=== PATIENT | female | born 1950 | race Hispanic/Latino ===

== ENCOUNTER 2017-07-02 14:32 | Outpatient (CLI) | payer MEDICARE, OTHER ==
--- NOTE | 2017-07-02 16:10 | MRI ---
MRI CERVICAL SPINE: 07/02/17 Multiplanar and multisequential imaging cervical spine obtained. HISTORY: Cervical disc degeneration. Headaches and neck pain. Cervical vertebrae maintain normal height and alignment. Mild loss of disc space height at all levels . Mild degenerative changes noted. No significant disc bulge or spondylitic change seen at C2-3, C3-4, C4-5 or C5-6. Anterior subarachno id space is preserved at these levels and there is no evidence of foraminal stenosis or encroachment. At C6-7, there is a broad based disc bulge and spondylitic change which abuts the anterior cord. No s ignificant foraminal encroachment. At C7-T1, no significant disc bulge or spondylosis. Cord signal is normal. IMPRESSION: Prominent disc bulge and spondylosis at C6-7 which abuts the anterior cord. POS: [facility]
== END 2017-07-02 14:33 | disposition home or self-care (01) ==
LOC: TBSIIMAG 14:32
PROVIDERS: ATTEND Neurological Surgery
DX: M50.30 Other cervical disc degeneration, unspecified cervical region (principal); M50.223 Other cervical disc displacement at C6-C7 level; M47.812 Spondylosis without myelopathy or radiculopathy, cervical region
CPT/HCPCS: 72141

== ENCOUNTER 2017-09-08 11:09 | Outpatient (CLI) | payer MEDICARE ==
[2017-09-08 11:55] VITALS: BMI 36.9
[2017-09-08 13:33] LABS: Hemoglobin 15.2 g/dL (12.0-16.0); Mean Corpuscular HGB CONC 34.6 g/dL (32.0-36.0); Mean Corpuscular Hemoglobin 31.1 pg (27.0-31.0); Mean Corpuscular Volume 89.8 fl (81.0-99.0); Mean Platelet Volume 8.1 fL (7.4-10.4); Platelet Count 282 thou/uL (130-400); RBC Distribution Width 12.1 % (11.5-14.5); White Blood Cell (WBC) Count 11.9 thou/uL (4.8-10.8)
[2017-09-08 14:09] LABS: Anion Gap 12 mmol/L (10-20); BUN (Urea Nitrogen) 24 mg/dL (9.8-20.1); Calc. Creatinine Clearance 92 mL/min (70-130); Calcium 10.3 mg/dL (7.8-10.44); Carbon Dioxide 32 mmol/L (23-31); Chloride 100 mmol/L (98-107); Estimated GFR-MDRD 75; Glucose 133 mg/dL (80-115); Potassium 3.7 mmol/L (3.5-5.1); Sodium 140 mmol/L (136-145)
--- NOTE | 2017-09-09 06:21 | EKG ---
Test Reason : Blood Pressure : / mmHG Vent. Rate : 059 BPM Atrial Rate : 058 BPM P-R Int : 162 ms QRS Dur : 084 ms QT Int : 432 ms P-R-T Axes : 050 -27 -12 degrees QTc Int : 427 ms Poor data quality, interpretation may be adversely affected Sinus rhythm Minimal voltage criteria for LVH, may be normal variant Nonspecific ST and T wave abnormality inferolaterally. Abnormal ECG No previous ECGs available Confirmed by ISIDRO MITCHELL ([id number]) on 09/09/2017 6:21:14 AM Referred By: JACOBY Confirmed By:ISIDRO MITCHELL
== END 2017-09-08 11:10 | disposition home or self-care (01) ==
LOC: LABBT 11:09
PROVIDERS: ATTEND Neurological Surgery
DX: Z01.810 Encounter for preprocedural cardiovascular examination (principal); Z01.812 Encounter for preprocedural laboratory examination; M47.12 Other spondylosis with myelopathy, cervical region
CPT/HCPCS: 80048; 85027; 93005; 93010

== ENCOUNTER 2017-09-15 07:48 | Observation (INO) | payer MEDICARE ==
[2017-09-15] MEDS ORDERED: Hydrocortisone Sod Succ/PF 100 mg/2 ml Vial ONE (10:02)
[2017-09-15] MEDS ORDERED: Sodium Chloride 0.9% 10 ML ONE (10:42)
[2017-09-15] MEDS ORDERED: Fentanyl 100 MCG/2 ML VIAL ONE ×3 (10:45→12:50)
[2017-09-15] MEDS ORDERED: Ondansetron HCl/PF 4 MG/2 ML Vial ONE ×3 (11:42→12:17)
[2017-09-15] MEDS ORDERED: HYDROmorphone 0.5 MG/0.5 ML SYRINGE ONE (11:43)
[2017-09-15] MEDS ORDERED: Promethazine HCl 25 MG/ML VIAL IM PRN ×2 (12:02→12:41)
[2017-09-15] MEDS ORDERED: Ondansetron HCl/PF 4 MG/2 ML Vial IVP PRN ×2 (12:02→12:41)
[2017-09-15] MEDS ORDERED: Promethazine HCl 25 MG/ML VIAL SLOW IVP PRN (12:02)
[2017-09-15] MEDS ORDERED: Lidocaine 1% PF 5 ML VIAL ONE (12:17)
[2017-09-15] MEDS ORDERED: PHENYLEPHRINE-NS 100 MCG/ML 10 ML SYRINGE ONE (12:17)
[2017-09-15] MEDS ORDERED: Propofol 200 MG/20 ML VIAL ONE (12:17)
[2017-09-15] MEDS ORDERED: Ketorolac Tromethamine 30 MG/ML VIAL ONE (12:17)
[2017-09-15] MEDS ORDERED: ePHEDrine/0.9% NaCl/PF SYRINGE 50 mg/10 ml ONE (12:17)
[2017-09-15] MEDS ORDERED: Glycopyrrolate 0.2 MG/ML 5 ML SYRINGE ONE (12:17)
[2017-09-15] MEDS ORDERED: Dexamethasone 20 MG/5 ML VIAL ONE (12:17)
--- NOTE | 2017-09-15 12:26 | OP ---
DATE OF PROCEDURE: 09/15/2017 SURGEON: Ryder Bonilla M.D. PROCEDURES PERFORMED: Anterior cervical discectomy C6-C7, interbody arthrodesis, intravertebral biom echanical device, local morselized autograft, demineralized bone matrix, anterior titanium instrument ation C6-C7. PROCEDURE IN DETAIL: The patient was brought into the operating room, intubated. She was positioned supine with the head in modest extension on a gel-filled donut. An incision was made in the right p recervical area and dissecting medial to the sternocleidomastoid muscle. We identified the anterior cervical spine and our level was confirmed by x-ray. The patient had fairly extensive DISH across th e anterior elements at the C6-C7 level remained preserved. We placed distraction across C6-C7, debri ded anterior osteophytes and completely decompressed the intravertebral disc and posterior osteophyte s down to the level of the dura, completely decompressing the spinal cord from foramen to foramen. T he bony endplates were then decorticated for the purpose of arthrodesis and appropriately sized intra vertebral biomechanical PEEK device was brought into the field, filled with demineralized bone matrix and local morselized autograft, and tapped into place securely at C6-C7. Next, an anterior plate wa s brought in the field and secured to C6 and C7 using two 14 mm screws at each level. The wound was then extensively irrigated, immaculate hemostasis was secured. Vancomycin powder was applied and the wound was then closed in anatomic layers.
[2017-09-15] MEDS ORDERED: Morphine 4 MG/ML Carpuject SLOW IVP PRN (12:41)
[2017-09-15] MEDS ORDERED: Promethazine 25 MG TAB PO PRN (12:41)
[2017-09-15] MEDS ORDERED: Promethazine HCl 12.5 MG SUPP PR PRN (12:41)
[2017-09-15] MEDS ORDERED: diphenhydrAMINE 25 MG CAP PO PRN (12:41)
[2017-09-15] MEDS ORDERED: diphenhydrAMINE 50 MG/ML VIAL IVP PRN (12:41)
[2017-09-15] MEDS ORDERED: traMADol HCl 50 MG TAB PO PRN ×2 (12:41)
[2017-09-15] MEDS ORDERED: tiZANidine HCl 4 MG TAB PO PRN (12:41)
[2017-09-15] MEDS ORDERED: Mag-Al 1200 mg/1200 mg/30 ML UDCUP PO PRN (12:41)
[2017-09-15] MEDS ORDERED: HYDROcodone/Acetaminophen 10/325 mg Tablet PO PRN ×2 (12:41→18:42)
[2017-09-15] MEDS ORDERED: Milk Of Magnesia 30 ML UDCUP PO PRN (12:41)
[2017-09-15 15:46] VITALS: BMI 36.3
[2017-09-15] MEDS: Sodium Chloride 0.9% 1,000 ML IV SCH (17:51)
[2017-09-15] MEDS: Vancomycin HCl 1 GM in Premix Bag 1 BAG IVPB SCH (17:52)
[2017-09-15] MEDS: HYDROcodone/Acetaminophen 10/325 mg Tablet PO PRN ×2 (18:35→23:21)
[2017-09-15] MEDS ORDERED: PROVENTIL INHALER 6.7 G (200 INHALATIONS) INH PRN (18:43)
[2017-09-15] MEDS ORDERED: Methocarbamol 500 MG TAB PO PRN ×2 (18:44→18:49)
[2017-09-15] MEDS ORDERED: BUPRENORPHINE TOP SCH (18:45)
[2017-09-15] MEDS: Metoprolol Tartrate 50 MG TAB PO SCH (20:55)
[2017-09-15] MEDS ORDERED: Saccharomyces boulardii 250 MG CAP PO SCH (21:00)
[2017-09-15] MEDS ORDERED: Pravastatin Sodium 20 MG TAB PO SCH (21:00)
[2017-09-16] MEDS: Sodium Chloride 0.9% 1,000 ML IV SCH (05:31)
[2017-09-16] MEDS: Vancomycin HCl 1 GM in Premix Bag 1 BAG IVPB SCH (06:11)
[2017-09-16 08:01] VITALS: BP 125/76; TEMP 97.5
[2017-09-16] MEDS: Metoprolol Tartrate 50 MG TAB PO SCH (08:42)
[2017-09-16] MEDS ORDERED: predniSONE 20 MG TAB PO SCH (09:00)
[2017-09-16] MEDS ORDERED: Escitalopram Oxalate 20 mg Tablet PO SCH (09:00)
[2017-09-16] MEDS ORDERED: Fish Oil 1,000 MG CAP PO SCH (09:00)
[2017-09-16] MEDS ORDERED: Multivitamin W/ Minerals 1 TAB PO SCH (09:00)
[2017-09-16] MEDS ORDERED: Triamterene/Hydrochlorothiazide 37.5 mg/25 mg Tablet PO SCH (09:00)
--- NOTE | 2017-09-16 11:20 | PDOC.PN ---
- Subjective Encounter Start Date: 09/16/17 Encounter Start Time: 08:50 -: old records requested/rev Patient seen and examined. No new complaints. No overnight events drain removed this morning, ambulatory, pain controlled - Objective Resuscitation Status: Resuscitation Status FULL:Full Resuscitation MAR Reviewed: Yes Vital Signs & Weight: Vital Signs (12 hours) Temp Pulse Resp BP BP Pulse Ox 09/16/17 08:44 69 125/76 09/16/17 07:59 97.5 F L 69 18 125/76 97 09/16/17 07:45 97.5 F L 69 18 09/16/17 04:54 97.9 F 63 18 126/72 99 09/16/17 00:45 97.5 F L 67 18 138/75 98 Weight Weight 180 lb I&O: 09/15/17 09/16/17 09/17/17 06:59 06:59 06:59 Intake Total 1101 Output Total 70 Balance 1031 Phys Exam - Physical Examination Constitutional: NAD HEENT: PERRLA, moist MMs, sclera anicteric Neck: no JVD, supple surgical site with dressing Respiratory: no wheezing, no rales, no rhonchi Cardiovascular: RRR, no significant murmur, no rub Gastrointestinal: soft, non-tender, no distention, positive bowel sounds Musculoskeletal: no edema, pulses present Neurological: non-focal, normal sensation, moves all 4 limbs Psychiatric: normal affect, A&O x 3 Skin: no rash, normal turgor Dx/Plan (1) Cervical disc disorder at C6-C7 level with myelopathy Code(s): M50.023 - CERVICAL DISC DISORDER AT C6-C7 LEVEL WITH MYELOPATHY Status: Acute Comment: s/p anterior cevical dissectomy (2) Anxiety and depression Code(s): F41.8 - OTHER SPECIFIED ANXIETY DISORDERS Status: Chronic (3) Dyslipidemia Code(s): E78.5 - HYPERLIPIDEMIA, UNSPECIFIED Status: Chronic (4) Hypertension Code(s): I10 - ESSENTIAL (PRIMARY) HYPERTENSION Status: Chronic (5) Obesity (BMI 30-39.9) Code(s): E66.9 - OBESITY, UNSPECIFIED Status: Chronic - Plan cont current plan of care, plan discussed w/ family, PT/OT * medication reviewed as below * symptomatic treatment * resume home medication on discharge * pain controlled * discussed with * stable for discharge * will sign off * code-full code. Review of Systems - Review of Systems ENT: negative: Ear Pain, Ear Discharge, Nose Pain, Nose Discharge, Nose Congestion, Mouth Pain, Mouth Swelling, Throat Pain, Throat Swelling, Other Respiratory: negative: Cough, Dry, Shortness of Breath, Hemoptysis, SOB with Excertion, Pleuritic Pain, Sputum, Wheezing Cardiovascular: negative: chest pain, palpitations, orthopnea, paroxysmal nocturnal dyspnea, edema, light headedness, other Gastrointestinal: negative: Nausea, Vomiting, Abdominal Pain, Diarrhea, Constipation, Melena, Hematochezia, Other Genitourinary: negative: Dysuria, Frequency, Incontinence, Hematuria, Retention , Other Musculoskeletal: negative: Neck Pain, Shoulder Pain, Arm Pain, Back Pain, Hand Pain, Leg Pain, Foot Pain, Other Skin: negative: Rash, Lesions, Elio, Bruising, Other - Medications/Allergies Allergies/Adverse Reactions: Allergies Allergy/AdvReac Type Severity Reaction Status Date / Time Penicillins Allergy Verified 09/08/17 11:39 All antibiotics Allergy Uncoded 09/08/17 11:39 Allergy meds -except Benedryl Allergy Uncoded 09/08/17 11:39 Ceyenne pepper Allergy Uncoded 09/08/17 11:39 Sleeping pills Allergy Uncoded 09/08/17 11:39 Medications: Current Medications Hydrocodone Bitart/Acetaminophen ([place] 10/325) 1 tab PO Q4H PRN PRN Reason: PAIN (1-3) Last Admin: 09/15/17 23:21 Dose: 1 tab Hydrocodone Bitart/Acetaminophen ([place] 10/325) 2 tab PO Q4H PRN PRN Reason: PAIN (4-6) Hydrocodone Bitart/Acetaminophen ([place] 10/325) 1 tab PO Q6H PRN PRN Reason: Pain Al Hydroxide/Mg Hydroxide (Maalox) 30 ml PO Q4H PRN PRN Reason: Heartburn or Indigestion Albuterol Sulfate (Proventil Hfa) 2 puff INH TID PRN PRN Reason: SOB &/or Wheezing Diltiazem HCl (Cardizem Cd) 120 mg PO DAILY [facility] Last Admin: 09/16/17 08:44 Dose: Not Given Diphenhydramine HCl (Benadryl) 25 mg PO Q6H PRN PRN Reason: Itching Diphenhydramine HCl (Benadryl) 25 mg IVP Q6H PRN PRN Reason: Itching Escitalopram Oxalate (Lexapro) 20 mg PO DAILY [facility] Last Admin: 09/16/17 08:45 Dose: Not Given Fish Oil (Fish Oil) 1,000 mg PO DAILY [facility] Last Admin: 09/16/17 08:42 Dose: Not Given Sodium Chloride (Normal Saline 0.9%) 1,000 mls @ 75 mls/hr IV .[id number] [facility] Last Admin: 09/16/17 05:31 Dose: Not Given Vancomycin HCl 1 gm/ Device 200 mls @ 166.67 mls/hr IVPB 0500,1700 [facility] Last Admin: 09/16/17 06:11 Dose: 200 mls Iron/Minerals/Multivitamins (Theragran M) 1 tab PO DAILY [facility] Last Admin: 09/16/17 08:45 Dose: Not Given Magnesium Hydroxide (Milk Of Magnesium) 30 ml PO Q12H PRN PRN Reason: Constipation Methocarbamol (Robaxin) 500 mg PO DAILY PRN PRN Reason: MUSCLE SPASM Metoprolol Tartrate (Lopressor) 50 mg PO BID [facility] Last Admin: 09/16/17 08:42 Dose: Not Given Morphine Sulfate (Morphine) 2 mg SLOW IVP Q1H PRN PRN Reason: Moderate Breakthrough Pain Last Admin: 09/15/17 15:36 Dose: 2 mg Morphine Sulfate (Morphine) 4 mg SLOW IVP Q1H PRN PRN Reason: Severe Breakthrough Pain Ondansetron HCl (Zofran) 4 mg IVP Q24H PRN PRN Reason: Nausea/Vomiting Buprenorphine ( (Butrans)) 1 each TOP Q7D [facility] Pravastatin Sodium (Pravachol) 20 mg PO HS [facility] Last Admin: 09/15/17 20:55 Dose: 20 mg Prednisone (Prednisone) 10 mg PO DAILY [facility] Last Admin: 09/16/17 08:43 Dose: Not Given Promethazine HCl (Phenergan) 12.5 mg IM Q4H PRN PRN Reason: Nausea/Vomiting Promethazine HCl (Phenergan) 12.5 mg PO Q4H PRN PRN Reason: Nausea/Vomiting Promethazine HCl (Phenergan Suppository) 12.5 mg FL Q4H PRN PRN Reason: Nausea/Vomiting Saccharomyces Boulardii (Florastor) 250 mg PO HS [facility] Last Admin: 09/15/17 20:55 Dose: 250 mg Sodium Chloride (Flush - Normal Saline) 10 ml IVF Q12HR [facility] Last Admin: 09/16/17 08:45 Dose: Not Given Sodium Chloride (Flush - Normal Saline) 10 ml IVF PRN PRN PRN Reason: Saline Flush Tizanidine HCl (Zanaflex) 4 mg PO Q6H PRN PRN Reason: MUSCLE SPASM Tramadol HCl (Ultram) 50 mg PO Q6H PRN PRN Reason: PAIN (1-3) Tramadol HCl (Ultram) 100 mg PO Q6H PRN PRN Reason: PAIN (4-6) Triamterene/HCTZ (Maxzide-25) 1 tab PO QAM [facility] Last Admin: 09/16/17 08:44 Dose: Not Given
== END 2017-09-16 11:26 | disposition home or self-care (01) ==
LOC: SDC 07:48 → SURG A 09:43
PROVIDERS: ADMIT Neurological Surgery; ATTEND Neurological Surgery
PROC: 0RT30ZZ Resection of Cervical Vertebral Disc, Open Approach (ICD-10-PCS; principal; 2017-09-15)
PROC: 0RG10A0 Fusion of Cervical Vertebral Joint with Interbody Fusion Device, Anterior Approach, Anterior Column, Open Approach (ICD-10-PCS; 2017-09-15)
DX: M48.12 Ankylosing hyperostosis [Forestier], cervical region (principal); M50.023 Cervical disc disorder at C6-C7 level with myelopathy; M47.12 Other spondylosis with myelopathy, cervical region; M19.90 Unspecified osteoarthritis, unspecified site; E11.9 Type 2 diabetes mellitus without complications; K52.9 Noninfective gastroenteritis and colitis, unspecified; F41.8 Other specified anxiety disorders; G43.909 Migraine, unspecified, not intractable, without status migrainosus; I10 Essential (primary) hypertension; E66.9 Obesity, unspecified; Z68.36 Body mass index [BMI] 36.0-36.9, adult; Z85.41 Personal history of malignant neoplasm of cervix uteri; Z85.818 Personal history of malignant neoplasm of other sites of lip, oral cavity, and pharynx; Z79.52 Long term (current) use of systemic steroids; Z79.899 Other long term (current) drug therapy; Z88.0 Allergy status to penicillin; Z88.1 Allergy status to other antibiotic agents; Z88.8 Allergy status to other drugs, medicaments and biological substances; Z91.018 Allergy to other foods; Z90.49 Acquired absence of other specified parts of digestive tract; Z98.890 Other specified postprocedural states; Z90.710 Acquired absence of both cervix and uterus
CPT/HCPCS: 20930; 20936; 22551; 22853; 76001; 96365; 96366; 96374; 96376; 97139; C1713 ×2; C1776; G0378; G8978; G8979; G8980; A4216; J1100; J1170; J1720; J1885; J2001; J2270; J2405; J2704; J3010; J3370; J3490; J7506

== ENCOUNTER 2017-09-30 15:17 | Outpatient (CLI) | payer MEDICARE ==
--- NOTE | 2017-09-30 16:54 | RAD ---
FOUR VIEWS CERVICAL SPINE: DATE: 09/30/17. HISTORY: Post surgery 2 weeks ago. Pain between shoulder blades as well as pain in the right arm. Migraine h eadaches. FINDINGS: C1 to the cervicothoracic junction is seen on the lateral swimmer's view of the cervical spine, but t he C7 vertebral body is mostly obscured due to overlying osseous structures. There are postsurgical changes related to anterior cervical fusion of the C6 and C7 vertebral bodies. Intradiskal prosthesi s is present at this level. No hardware complication is appreciated. Vertebral body heights appear to be within normal limits and no obvious fracture or subluxation is seen. Prevertebral soft tissues are within normal limits. IMPRESSION: 1. Limited evaluation of the C7 vertebral body, but there is, otherwise, no obvious fracture or subl uxation. 2. Postsurgical changes related to anterior cervical fusion at the C6-7 level. POS: [facility]
== END 2017-09-30 15:18 | disposition home or self-care (01) ==
LOC: TBSIIMAG 15:17
PROVIDERS: ATTEND Physician Assistant
DX: M47.12 Other spondylosis with myelopathy, cervical region (principal); Z98.1 Arthrodesis status
CPT/HCPCS: 72040

== ENCOUNTER 2017-11-11 15:19 | Outpatient (CLI) | payer MEDICARE ==
--- NOTE | 2017-11-11 15:49 | RAD ---
FOUR VIEWS OF CERVICAL SPINE: COMPARISON: 09/30/17. HISTORY: Neck surgery. Cervical spondylosis with myelopathy. FINDINGS: AP, lateral, swimmers, and open-mouth odontoid views of the cervical spine were performed. The patie nt is status post anterior fusion of C6 and C7 with a plate and screws. An intervening disk spacer i s in good position within the disk space. No perihardware lucency is seen. No prevertebral soft tis fadumo swelling is present. There are bridging osteophytes spanning C4 and C5. The vertebral bodies de monstrate normal alignment without subluxation. No change has occurred compared to the prior exam. IMPRESSION: Stable postsurgical changes of the lower cervical spine as above. POS: [facility]
== END 2017-11-11 15:20 | disposition home or self-care (01) ==
LOC: TBSIIMAG 15:19
PROVIDERS: ATTEND Neurological Surgery
DX: M47.12 Other spondylosis with myelopathy, cervical region (principal); Z98.1 Arthrodesis status; Z98.890 Other specified postprocedural states
CPT/HCPCS: 72040

== ENCOUNTER 2018-01-12 14:20 | Outpatient (CLI) | payer MEDICARE | END 2018-01-12 14:21 | disposition home or self-care (01) | LOC: BICMRI 14:20 | PROVIDERS: ATTEND Neurological Surgery | DX: M54.6 Pain in thoracic spine (principal) | CPT/HCPCS: 72146 ==

== ENCOUNTER 2018-08-06 12:37 | Outpatient (CLI) | payer MEDICARE ==
--- NOTE | 2018-08-06 14:45 | RAD ---
FOUR VIEWS CERVICAL SPINE: HISTORY: Disk degeneration. Pain at the base of the skull. FINDINGS: On the open mouth projection, limited evaluation of the odontoid process. Lateral masses of C1 and C 2 articulate appropriately. On the AP projection, there is no malalignment. Mild facet hypertrophy. There is an anterior fusion plate with transvertebral body screw at C6 and C7. There does appear to be perihardware lucency. There is a prosthesis of the C6-C7 level. There appears to be some irregul arity involving the C6 an C7 vertebral bodies. Normal-appearing end plates are difficult to apprecia te. Better interrogation with CT may be beneficial. There is straightening of normal cervical lordo sis. There is no prevertebral soft tissue swelling. Precentral space is normal. In the neutral position, there is no malalignment. Upon extension and flexion, there is no abnormal motion. IMPRESSION: Limited evaluation of the cervical vertebrae at the level of fusion. There does appear to be some pe rihardware lucency involving the transvertebral body screws at C6 and C7 along with irregularity invo lving the end plates at the level of the disk prosthesis. Better interrogation with CT may be benefi cial. POS: [facility]
--- NOTE | 2018-08-06 15:45 | MRI ---
CERVICAL SPINE MRI WITHOUT CONTRAST: Date: 08-06-18 Comparison: 07-02-17 History: Cervical disc degeneration, pain, prior fusion. Technique: Multiplanar, multisequence MR imaging of the cervical spine provided without contrast. FINDINGS: Detailed assessment of the cervical spine is slightly limited on the basis of persistent motion artif act. Anterior discectomy and fusion hardware at C6-7 present, not well characterized on this exam. Pl ease refer to cervical spine radiographs also performed on 08-06-18. There is no significant anterolisthesis or retrolisthesis present within the cervical spine. No discr ete prevertebral soft tissue abnormality. Stable mild degenerative change at the atlantoaxial intersp jerman. C2-3: Disc space narrowing and mild left facet hypertrophy with no central canal or neural foraminal stenosis. C3-4: Mild bilateral facet hypertrophy. No central canal or neural foraminal stenosis. C4-5: Mild bilateral facet hypertrophy. Mild disc space narrowing. Disc desiccation. No significant c entral canal or neural foraminal stenosis. C5-6: No significant central canal or neural foraminal stenosis. Disc space narrowing and disc desicc ation. C6-7: Mild disc bulge with partial effacement of ventral thecal sac and mild central canal stenosis. Disc protrusion, uncal vertebral osteophyte formation and facet hypertrophy noted in the left foramin al region with probable mild left neural foraminal stenosis. No significant right neural foraminal st enosis. C7-T1: No significant central anal or neural foraminal stenosis. Mild facet hypertrophy on the left. No focal area of signal abnormality is identified within the cervical cord. IMPRESSION: Post-operative changes as detailed above. Disc bulge at C6-7 with no central canal stenosis. Mild lef t neural foraminal stenosis at C6-7 on the basis of disc protrusion and osteophyte formation. POS: [facility]
== END 2018-08-06 12:38 | disposition home or self-care (01) ==
LOC: TBSIIMAG 12:37
PROVIDERS: ATTEND Neurological Surgery
DX: M50.30 Other cervical disc degeneration, unspecified cervical region (principal); M50.823 Other cervical disc disorders at C6-C7 level; M48.02 Spinal stenosis, cervical region; M50.223 Other cervical disc displacement at C6-C7 level; M25.78 Osteophyte, vertebrae; Z98.1 Arthrodesis status
CPT/HCPCS: 72050; 72141